=== PATIENT | female | born 1945 | race Two or more races ===

== ENCOUNTER 2017-02-01 10:50 | Emergency (ER) | payer MEDICAID ==
[~2017-02-01] VITALS: Ht 162.6 cm; Wt 72.6 kg
[~2017-02-01 10:50] MED LIST: ASPIRIN81 MG ORAL; PEPCID20 MG ORAL
[2017-02-01] MEDS ORDERED: TRAMADOL HCL50 MG ORAL (13:28)
[2017-02-01] MEDS ORDERED: IBUPROFEN600 MG ORAL (13:28)
[2017-02-01 14:20] VITALS: BP 159/76
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
--- NOTE | 2017-02-02 10:26 | Diagnostic Imaging Report ---
Indication: Trauma with pain Technique: XRAY KNEE THREE VIEWS LEFT Comparison: None. Findings: The osseous structures are intact. There is no fracture or destruction. The visualized joints are normal. There is an enthesophyte on the anterior superior patella. Impression: Quadriceps tendon attachment enthesophyte. Otherwise negative.
== END 2017-02-01 14:20 | disposition home or self-care (01) ==
LOC: EMR 11:58
DX: S83.412A Sprain of medial collateral ligament of left knee, initial encounter (principal); S80.02XA Contusion of left knee, initial encounter; V09.9XXA Pedestrian injured in unspecified transport accident, initial encounter; Y93.9 Activity, unspecified; Y92.9 Unspecified place or not applicable; I10 Essential (primary) hypertension
CPT/HCPCS: 29530; 99284

== ENCOUNTER 2018-03-10 09:34 | Emergency (ER) | payer MEDICAID, OTHER ==
[~2018-03-10] VITALS: Ht 154.9 cm; Wt 72.6 kg
[~2018-03-10 09:34] MED LIST changes: +IBUPROFEN600 MG ORAL; +TRAMADOL HCL50 MG ORAL
[2018-03-10] MEDS ORDERED: ATORVASTATIN CA20 MG ORAL (09:45)
[2018-03-10] MEDS ORDERED: HYDROCHLOROTHIA25 MG ORAL (09:45)
[2018-03-10] MEDS ORDERED: LOSARTAN POTASS50 MG ORAL (09:45)
[2018-03-10 10:22] VITALS: BP 162/76
[2018-03-10 10:27] LABS: BASOPHILS % (AUTO) 0.6 % (0.0-2.0); BILIRUBIN, URINE NEGATIVE (NEGATIVE); COLOR,URINE PALE YELLOW; EOSINOPHILS % (AUTO) 0.7 % (0.0-3.0); GLUCOSE, URINE (UA) NEGATIVE (NEGATIVE); HEMATOCRIT 40.2 % (37.0-47.0); HEMOGLOBIN 13.9 G/DL (12.0-16.0); KETONES,URINE NEGATIVE (NEGATIVE); LEUKOCYTE ESTERASE ,URINE NEGATIVE (NEGATIVE); LYMPHOCYTES % (AUTO) 35.8 % (20.0-45.0); MEAN CORPUSCULAR VOLUME 86 FL (80-99); MONOCYTES % (AUTO) 5.9 % (1.0-10.0); NEUTROPHILS % (AUTO) 57.1 % (45.0-75.0); NITRITE,URINE NEGATIVE (NEGATIVE); PH,URINE 8 (4.5-8.0); PLATELET COUNT 267 K/UL (150-450); PROTEIN,URINE 2+ (NEGATIVE); RED BLOOD COUNT 4.65 M/UL (4.20-5.40); RED CELL DISTRIBUTION WIDTH 11.6 % (11.6-14.8); UROBILINOGEN,URINE NORMAL MG/DL (0.0-1.0); WHITE BLOOD COUNT 7.8 K/UL (4.8-10.8)
[2018-03-10 10:28] LABS: APPEARANCE,URINE SLIGHTLY CLOUDY
[2018-03-10 10:39] LABS: ANION GAP 9 mmol/L (5-15); BLOOD UREA NITROGEN 14 mg/dL (7-18); CALCIUM 9.5 MG/DL (8.5-10.1); CARBON DIOXIDE 34 MMOL/L (21-32); CHLORIDE 100 MMOL/L (98-107); CREATININE 0.8 MG/DL (0.55-1.30); POTASSIUM 3.2 MMOL/L (3.5-5.1); SODIUM 142 MMOL/L (136-145)
[2018-03-10 10:54] LABS: ALANINE AMINOTRANSFERASE 28 U/L (12-78); ALBUMIN/GLOBULIN RATIO 0.9 (1.0-2.7); ALKALINE PHOSPHATASE 74 U/L (46-116); ASPARTATE AMINO TRANSFERASE 19 U/L (15-37); BILIRUBIN,TOTAL 0.6 MG/DL (0.2-1.0)
[2018-03-10 12:06] VITALS: BP 147/67
--- NOTE | 2018-03-10 15:20 | Diagnostic Imaging Report ---
Indication: Shortness of breath Technique: One view of the chest Comparison: none Findings: Lungs and pleural spaces are clear. Heart size is normal. The aorta is elongated and tortuous Impression: No acute process
[2018-03-11] MEDS ORDERED: LOSARTAN-HCTZ1 EAC1 ORAL (00:27)
--- NOTE | 2018-03-11 17:09 | Cardiology Report ---
APPROVED REPORT EKG Measurement Heart [id number] Normal sinus rhythm Cannot rule out Anterior infarct, age undetermined Abnormal ECG
--- NOTE | 2018-03-19 01:20 | Emergency Room Report ---
History of Present Illness General Chief Complaint: Hypertension Source: Patient, Medical Record Present Illness HPI The patient is a 72-year-old female who presented after increased blood pressure. Patient reported having noted her blood pressure was elevated. She had taken her blood pressure medication subsequently and was noted to have provement. She denies any chest pain or shortness of breath. Patient prior history of diabetes. She reported feeling somewhat dizzy. Allergies: Coded Allergies: No Known Allergies (Unverified , 04/03/15) Patient History Past Medical History: see triage record Reviewed Nursing Documentation: PMH: Agreed; PSxH: Agreed Nursing Documentation-PMH Past Medical History: No History, Except For Hx Hypertension: Yes Review of Systems All Other Systems: negative except mentioned in HPI Physical Exam Sp02 EP Interpretation: reviewed, normal General Appearance: normal inspection, well appearing, no apparent distress, alert, GCS 15, non-toxic Head: atraumatic ENT: normal ENT inspection, hearing grossly normal, normal voice Neck: normal inspection, full range of motion, supple, no bony tend Respiratory: normal inspection, lungs clear, normal breath sounds, no respiratory distress, no retraction, no wheezing Cardiovascular #1: regular rate, rhythm, no edema Gastrointestinal: normal inspection, normal bowel sounds, non tender, soft, no guarding, no hernia Genitourinary: no CVA tenderness Musculoskeletal: normal inspection, back normal, normal range of motion Neurologic: normal inspection, alert, responsive, speech normal Psychiatric: normal inspection, judgement/insight normal, mood/affect normal Skin: normal inspection, normal color, no rash Medical Decision Making Diagnostic Impression: Primary Impression: Hypertension ER Course Patient presented for elevated blood pressure. Differential diagnosis included was not limited to asymptomatic hypertension, intracranial hemorrhage, myocardial infarction, cardiac arrhythmia among others.Because of complexity of patient's case laboratory testing and imaging studies were ordered.EKG interpreted by me showed normal sinus rhythm without acute ST or T wave changes.Laboratory testing was unremarkable. The patient was offered admission but stated she felt better and wanted to go home. The patient is advised to follow up with primary care doctor in 1-2 days. Patient is advised to return if any worsening condition or if any changes in status that are concerning. This report is dictated with [employer] smoked meat preparer software which may occasionally lead to discrepancies related to use of this software. Status: improved Disposition: HOME, SELF-CARE Condition: Stable Patient Instructions: Hypertension Miguel Aquino Mar 19, 2018 01:20
== END 2018-03-10 12:08 | disposition home or self-care (01) ==
LOC: EMR 10:19
DX: I10 Essential (primary) hypertension (principal); E11.9 Type 2 diabetes mellitus without complications; R06.02 Shortness of breath
CPT/HCPCS: 36415; 71045; 80053; 81001; 84443; 84484; 85025; 93005; 99284; J8499

== ENCOUNTER 2018-03-11 | Emergency (ER) | payer OTHER ==
[~2018-03-11] VITALS: Ht 157.5 cm; Wt 81.6 kg
[~2018-03-11] MED LIST changes: +ATORVASTATIN CA20 MG ORAL; +HYDROCHLOROTHIA25 MG ORAL; +LOSARTAN POTASS50 MG ORAL
[2018-03-11] MEDS ORDERED: LOSARTAN-HCTZ1 EAC1 ORAL (00:27)
[2018-03-11] MEDS ORDERED: Losartan 50mg tab ONE (00:27)
--- NOTE | 2018-03-11 00:28 | Emergency Room Report ---
History of Present Illness General Chief Complaint: Hypertension Source: Patient Present Illness HPI This is a 72-year-old Swedish-speaking female with history of high blood pressure. She came in with chief complaint of high blood pressure. She was here yesterday for the same thing. Labs were unremarkable. She said at home her blood pressure was 92/80 and then it went up to 190 systolic. She has no symptom. She was concerned as when she came in. No headache, chest pain, shortness of breath or hematuria. Allergies: Coded Allergies: No Known Allergies (Unverified , 04/03/15) Patient History Past Medical History: see triage record, old chart reviewed, HTN Past Surgical History: other Pertinent Family History: none Social History: Denies: smoking Now: No Immunizations: other Reviewed Nursing Documentation: PMH: Agreed; PSxH: Agreed Nursing Documentation-PMH Past Medical History: No History, Except For Hx Hypertension: Yes Review of Systems Eye: Denies: eye pain, blurred vision ENT: Denies: ear pain, nose congestion, throat swelling Respiratory: Denies: cough, shortness of breath Cardiovascular: Denies: chest pain, palpitations Gastrointestinal: Denies: abdominal pain, diarrhea, nausea, vomiting Musculoskeletal: Denies: back pain, joint pain Skin: Denies: rash Neurological: Denies: headache, numbness Endocrine: Denies: increased thirst, increased urine Hematologic/Lymphatic: Denies: easy bruising All Other Systems: negative except mentioned in HPI Physical Exam Vital Signs Date Time Temp Pulse Resp B/P (MAP) Pulse Ox O2 Delivery O2 Flow Rate FiO2 03/11/18 00:04 98.2 119 15 209/97 97 Room Air 98.2 vitals with high blood pressure Sp02 EP Interpretation: reviewed, normal General Appearance: well appearing, no apparent distress, alert Head: normocephalic, atraumatic Eyes: bilateral eye PERRL, bilateral eye EOMI ENT: hearing grossly normal, normal pharynx Neck: full range of motion, supple, no meningismus Respiratory: chest non-tender, lungs clear, normal breath sounds Cardiovascular #1: regular rate, rhythm, no murmur Gastrointestinal: normal bowel sounds, non tender, no mass, no organomegaly, no bruit, non-distended Musculoskeletal: back normal, gait/station normal, normal range of motion Psychiatric: mood/affect normal Skin: warm/dry Medical Decision Making Diagnostic Impression: Primary Impression: Hypertension Qualified Codes: I10 - Essential (primary) hypertension ER Course Patient presents with asymptomatic hypertension. Her blood pressure been running systolic 180s to 190s here. We'll increase her losartan. No evidence of endorgan damage. Last Vital Signs Date Time Temp Pulse Resp B/P (MAP) Pulse Ox O2 Delivery O2 Flow Rate FiO2 03/11/18 00:04 98.2 119 15 209/97 97 Room Air 98.2 Status: improved Disposition: HOME, SELF-CARE Condition: Stable Scripts Losartan/Hydrochlorothiazide (LOSARTAN-HCTZ 100-25 MG TAB) 1 Each Tablet 1 TAB ORAL DAILY, #30 TAB Prov: RAJINDER DOUGHERTY M.D. 03/11/18 Additional Instructions: Increase your losartan to 100 mg a day. Return if symptom worsen. Follow-up your doctor in 7 days for recheck. RAJINDER DOUGHERTY M.D. Mar 11, 2018 00:28
[2018-03-11] MEDS ORDERED: Losartan 25mg tab ORAL ONE (00:30)
[2018-03-11 01:53] VITALS: BP 145/52
== END 2018-03-11 01:56 | disposition home or self-care (01) ==
LOC: EMR 00:19
DX: I10 Essential (primary) hypertension (principal)
CPT/HCPCS: 99283

== ENCOUNTER 2020-08-29 08:28 | Emergency (ER) | payer OTHER, MEDICARE, MEDICAID ==
[~2020-08-29] VITALS: Ht 165.1 cm; Wt 81.6 kg
[~2020-08-29 08:28] MED LIST changes: +LOSARTAN-HCTZ1 EAC1 ORAL
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
[2020-08-29 08:40] VITALS: BP 157/86
--- NOTE | 2020-08-29 08:50 | Emergency Room Report ---
History of Present Illness General Chief Complaint: Upper Extremity Injury Source: Patient Present Illness HPI Disclaimer: Please note that this report is being documented using [email or web address] technology. This can lead to erroneous entry secondary to incorrect interpretation by the dictating instrument. HPI: 75-year-old female presents from home secondary to right wrist pain. She had a trip and fall approximately 3 days ago. Complains of 8 out of 10 pain in the right wrist worse with movement and palpation. Her pain is been persistent so she came to the ER for evaluation. She denies any other injuries. No head neck or back trauma. History of hypertension. Allergies: Coded Allergies: No Known Allergies (Unverified , 04/03/15) COVID-19 Screening Contact w/high risk pt: No Experienced COVID-19 symptoms?: No COVID-19 Testing performed DISEASE AND INSECT CONTROL BOSS: No Patient History Last Menstrual Period: na Reviewed Nursing Documentation: PMH: Agreed; PSxH: Agreed Nursing Documentation-PMH Past Medical History: No History, Except For Hx Hypertension: Yes Review of Systems All Other Systems: negative except mentioned in HPI Physical Exam Vital Signs Date Time Temp Pulse Resp B/P (MAP) Pulse Ox O2 Delivery O2 Flow Rate FiO2 08/29/20 08:33 98.1 91 16 169/82 (111) 98 Room Air Sp02 EP Interpretation: reviewed, normal General Appearance: well appearing, no apparent distress Head: normocephalic, atraumatic Eyes: bilateral eye PERRL, bilateral eye EOMI ENT: hearing grossly normal, moist mucus membranes Neck: full range of motion, supple Respiratory: lungs clear, normal breath sounds, no rhonchi, no respiratory distress, no retraction, no wheezing Cardiovascular #1: normal peripheral pulses, regular rate, rhythm, no murmur Gastrointestinal: non tender, soft, non-distended, no guarding Musculoskeletal: other - Right wrist tender to palpation, swelling noted, 2+ pulses, nutrition instructor strength intact, no obvious deformity Neurologic: alert, oriented x3, no focal defects Skin: normal color, warm/dry Medical Decision Making Diagnostic Impression: Primary Impression: Right wrist fracture ER Course Differential diagnosis included but not limited to fracture, dislocation, sprain to name a few x-ray ordered and did show distal radius fracture. Patient was placed in a sugar tong splint. She was discharged and provided orthopedic urgent care follow-up. Neurovascularly intact pre-and post splinting. Other X-Ray Diagnostic Results Other X-Ray Diagnostic Results : X-Ray ordered: Right wrist x-ray # of Views/Limited Vs Complete: 3 View Indication: Pain EP Interpretation: Yes Interpretation: other - Distal radius fracture noted no dislocation Electronically Signed by: Ruy Berrios MD Last Vital Signs Date Time Temp Pulse Resp B/P (MAP) Pulse Ox O2 Delivery O2 Flow Rate FiO2 08/29/20 08:40 98.3 81 18 157/86 97 Room Air Status: improved Disposition: HOME, SELF-CARE Condition: Stable Scripts Ibuprofen* (MOTRIN*) 600 Mg Tablet 600 MG ORAL Q6H PRN for FOR PAIN, #20 TAB 0 Refills Prov: Ruy Berrios M.D. 08/29/20 Ruy Berrios M.D. Aug 29, 2020 08:50
--- NOTE | 2020-08-29 09:27 | NUR ---
ED Nurse Note: XRAY AT BEDSIDE
[2020-08-29] MEDS ORDERED: IBUPROFEN600 M1 ORAL (09:48)
[2020-08-29 10:15] VITALS: BP 152/89
--- NOTE | 2020-08-29 10:15 | NUR ---
ED Nurse Note: arm splinted. Pt cleared by health care Provider for discharge. DC instructions/prescription were given and explained to pt and verbalized understanding of teachings. All medical deviecs such as ID band removed. Pt is AAO x4, ambulatory and left with all personal belongings.
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
== END 2020-08-29 10:15 | disposition home or self-care (01) ==
LOC: EMR 08:45
DX: S52.501A Unspecified fracture of the lower end of right radius, initial encounter for closed fracture (principal); W01.0XXA Fall on same level from slipping, tripping and stumbling without subsequent striking against object, initial encounter; Y92.9 Unspecified place or not applicable; I10 Essential (primary) hypertension
CPT/HCPCS: 29125; 99283